=== PATIENT | female | born 1990 | race Caucasian/White ===

== ENCOUNTER 2017-04-14 13:26 | Inpatient (IN) | payer MEDICAID ==
[~2017-04-14] VITALS: Ht 149.9 cm; Wt 98.9 kg
[2017-04-14] MEDS ORDERED: NALOXONE HCL 0.4 MG/ML 1ML VIAL IM PRN (13:45)
[2017-04-14] MEDS ORDERED: METHYLERGONOVINE MALEATE 0.2 MG/ML IM PRN (13:45)
[2017-04-14] MEDS ORDERED: CARBOPROST TROMETHAMINE 250 MCG/ML AMPUL IM PRN (13:45)
[2017-04-14] MEDS ORDERED: MISOPROSTOL 100MCG TABLET VG SCH (13:45)
[2017-04-14] MEDS ORDERED: ALBUTEROL (0.083%) 2.5MG/3ML NEB HHN NR (14:15)
[2017-04-14] MEDS: LACTATED RINGERS 1,000 ML IV SCH ×3 (14:17→17:05)
[2017-04-14 14:32] LABS: BASOPHILS % 0.5 % (0.0-2.0); EOSINOPHILS % 3.2 % (0.0-5.0); HEMATOCRIT. 37.5 % (36.0-48.0); HEMOGLOBIN. 12.5 g/dL (12.0-16.0); LYMPHOCYTES % 19.7 % (20.0-50.0); MEAN CORPUSCULAR HEMOGLOBIN 27.8 pg (28.0-32.0); MEAN CORPUSCULAR VOLUME 83.5 fL (81.0-99.0); MEAN PLATELET VOLUME 10.4 fl (7.4-10.4); MONOCYTES % 4.8 % (2.0-8.0); NEUTROPHILS % 71.8 % (40.0-76.0); PLATELET 161 x1000/uL (130-400); RED BLOOD CELL COUNT 4.49 mill/uL (4.2-5.4); RED CELL DISTRIBUTION WIDTH 14.2 % (11.6-14.6)
[2017-04-14 14:41] LABS: INR 0.9; PARTIAL THROMBOPLASTIN TIME 27.4 sec (23.4-31.0); PROTHROMBIN TIME 9.5 sec (9.4-11.6)
[2017-04-14] MEDS ORDERED: MORPHINE SULFATE/PF 1MG/ML 10ML AMP ONE (14:51)
[2017-04-14] MEDS ORDERED: MIDAZOLAM HCL 2 MG/2 ML VIAL ONE (14:53)
[2017-04-14] MEDS ORDERED: DEXAMETHASONE 4MG/ML 1ML VIAL ONE (15:00)
[2017-04-14] MEDS ORDERED: ONDANSETRON HCL 4MG/2ML VIAL ONE (15:00)
[2017-04-14] MEDS ORDERED: CEFAZOLIN SODIUM 1000MG/VIAL ONE (15:00)
[2017-04-14] MEDS ORDERED: OXYTOCIN 10 UNITS/ML 1ML ONE (15:00)
[2017-04-14] MEDS ORDERED: SODIUM CHLORIDE 0.9% 10ML VIAL ONE (15:00)
[2017-04-14] MEDS ORDERED: PHENYLEPHRINE HCL 10 MG/ML 1ML (IV VIAL) IV ONE (15:00)
[2017-04-14] MEDS ORDERED: EPHEDRINE SULFATE 50MG/ML VIAL ONE (15:00)
[2017-04-14 15:12] LABS: HEPATITIS B SURFACE ANTIGEN NEGATIVE; RUBELLA IGG 446.4 IU/mL (4.99-10)
[2017-04-14] MEDS ORDERED: ONDANSETRON HCL 4MG/2ML VIAL IV PRN ×2 (17:45→18:45)
[2017-04-14] MEDS ORDERED: HYDROCODONE/ACETAMINOPHEN 5/325MG TABLET PO PRN ×2 (17:45)
[2017-04-14] MEDS ORDERED: KETOROLAC 30MG/ML VIAL IV SCH ×2 (18:00→18:45)
[2017-04-14 18:14] LABS: CLARITY URINE CLOUDY (CLEAR); COLOR URINE YELLOW (YELLOW); GLUCOSE URINE NEGATIVE (NEGATIVE); KETONES URINE 1+ (NEGATIVE); LEUKOCYTE ESTERASE URINE TRACE (NEGATIVE); NITRITE URINE NEGATIVE (NEGATIVE); OCCULT BLOOD URINE 2+ (NEGATIVE); PH URINE 5.5 (4.5-8.0); PROTEIN URINE NEGATIVE (NEGATIVE); SPECIFIC GRAVITY URINE 1.015 (1.005-1.030); UROBILINOGEN URINE 0.2 E.U./dL (0.2-1.0)
[2017-04-14 18:28] LABS: *AMPHETAMINES SCREEN URINE NEGATIVE (NEGATIVE); *BARBITURATES SCREEN URINE NEGATIVE (NEGATIVE); *BENZODIAZEPINES SCREEN URINE NEGATIVE (NEGATIVE); *COCAINE SCREEN URINE NEGATIVE (NEGATIVE); CANNABINOID URINE SCREEN NEGATIVE (NEGATIVE); METHADONE URINE SCREEN NEGATIVE (NEGATIVE); OPIATES URINE SCREEN NEGATIVE (NEGATIVE); PHENCYCLIDINE URINE SCREEN NEGATIVE (NEGATIVE)
[2017-04-14] MEDS ORDERED: DIPHENHYDRAMINE 50MG/ML VIAL IV PRN (18:45)
[2017-04-14] MEDS ORDERED: NALOXONE HCL 0.4 MG/ML 1ML VIAL IV PRN (18:45)
[2017-04-14] MEDS: DEXT 5%/LR + PITOCIN 20UNITS/L 1,000 ML IV SCH (20:24)
[2017-04-14 22:00] VITALS: BP 110/82
[2017-04-14] MEDS ORDERED: CEFAZOLIN SODIUM 1000MG/VIAL IV SCH (22:00)
[2017-04-15] VITALS: BP 109/78
[2017-04-15] MEDS: CEFAZOLIN 1000MG PREMIX 50 ML IV SCH ×2 (01:59→10:07)
[2017-04-15 05:00] VITALS: BP 105/72
[2017-04-15] MEDS: DEXT 5%/LR + PITOCIN 20UNITS/L 1,000 ML IV SCH (05:13)
[2017-04-15 06:08] LABS: HEMATOCRIT 32.4 % (36.0-48.0); HEMOGLOBIN 10.8 g/dL (12.0-16.0)
[2017-04-15 08:55] VITALS: BP 104/65
[2017-04-15] MEDS: SIMETHICONE 80MG TABLET CHEW PO SCH ×4 (09:01→20:24)
[2017-04-15 12:15] VITALS: BP 104/70
[2017-04-15] MEDS ORDERED: GUAIFENESIN-DM 200MG-20MG/10ML UDC PO PRN (12:15)
[2017-04-15] MEDS: ALBUTEROL (0.083%) 2.5MG/3ML NEB HHN SCH ×3 (13:16→21:00)
[2017-04-15 16:15] VITALS: BP 106/63
[2017-04-15 20:15] VITALS: BP 110/70
[2017-04-15] MEDS: DOCUSATE SODIUM 100MG CAPSULE PO SCH ×2 (20:22→21:00)
[2017-04-15] MEDS: IBUPROFEN 800MG TABLET PO PRN (20:29)
[2017-04-16] VITALS (7 sets, daily range): BP systolic 100–121; BP diastolic 55–68
[2017-04-16] MEDS: ALBUTEROL (0.083%) 2.5MG/3ML NEB HHN SCH ×6 (00:43→22:27)
[2017-04-16] MEDS ORDERED: DOCU-138 PO (04:40)
[2017-04-16] MEDS ORDERED: IBUP-2030 PO (04:40)
[2017-04-16] MEDS: IBUPROFEN 800MG TABLET PO PRN ×3 (04:46→23:21)
[2017-04-16] MEDS: SIMETHICONE 80MG TABLET CHEW PO SCH ×3 (08:32→21:00)
[2017-04-17] MEDS: ALBUTEROL (0.083%) 2.5MG/3ML NEB HHN SCH ×3 (01:46→07:56)
[2017-04-17 04:00] VITALS: BP 100/57
[2017-04-17] MEDS: IBUPROFEN 800MG TABLET PO PRN (08:19)
[2017-04-17 08:20] VITALS: BP 100/57
== END 2017-04-17 13:44 | disposition home or self-care (01) | DRG 540 ==
LOC: L&D 13:26 → OBSVTOIN 13:26 → 7EST PP/OB 21:44
PROVIDERS: ADMIT Obstetrics & Gynecology Obstetrics; ATTEND Obstetrics & Gynecology Obstetrics
PROC: 10D00Z1 Extraction of Products of Conception, Low, Open Approach (ICD-10-PCS; principal; 2017-04-14 17:35)
DX: O34.211 Maternal care for low transverse scar from previous cesarean delivery (principal); J45.909 Unspecified asthma, uncomplicated; O99.52 Diseases of the respiratory system complicating childbirth; O69.81X0 Labor and delivery complicated by cord around neck, without compression, not applicable or unspecified; Z37.0 Single live birth; Z3A.40 40 weeks gestation of pregnancy
CPT/HCPCS: 36415; 80305; 81001; 85014; 85018; 85025; 85610; 85730; 86592; 86703; 86762; 86850; 86900; 86920; 87340; 88307; 94640; 94664; A4216; J0171; J0690; J1100; J1885; J2250; J2274; J2370; J2405; J2590; J7120; J7611; A4315